=== PATIENT | female | born 1995 | race Caucasian/White ===

== ENCOUNTER 2016-06-12 00:49 | Outpatient (CLI) | payer OTHER, MEDICAID ==
[~2016-06-12] VITALS: Ht 157.5 cm; Wt 90.8 kg
[2016-06-12 01:12] VITALS: BP 132/91; PULSE 93; Ht 157.5 cm; Wt 90.8 kg
[2016-06-12] MEDS ORDERED: PREN1TAB62 PO (01:14)
[2016-06-12 01:42] LABS: ADD UMIC YES; URINE BILIRUBIN (Dip) NEGATIVE (NEGATIVE); URINE BLOOD (Dip) TRACE (NEGATIVE); URINE COLOR LT. YELLOW (YELLOW); URINE GLUCOSE (Dip) NEGATIVE (NEGATIVE); URINE KETONES (Dip) NEGATIVE (NEGATIVE); URINE LEUKOCYTE ESTERASE (Dip) TRACE (NEGATIVE); URINE NITRITE (Dip) NEGATIVE (NEGATIVE); URINE TOTAL PROTEIN (Dip) NEGATIVE (NEGATIVE); URINE UROBILINOGEN (Dip) 0.2 E.U./dL (0.1-1.0)
[2016-06-12 01:51] LABS: SQUAMOUS EPITHELIAL CELL,UR FEW; URINE RBCS NONE SEEN /HPF (0)
--- NOTE | 2016-06-12 03:09 | QN ---
Documentation Comment Laborist Dr Kumar's pt 21 y.o. G1 with an IUP at 28w 1d and c/o right lower abdominal pain and pressure since this AM. Pain is 3/10. Not aware of any contractions, vaginal bleeding or leaking. No intercourse in last 3 days. Pt also reports left groin pain for a month or more.No nausea, vomiting, dysuria or frequency. PMHx: none. PSHx: none. NKDA. BP 132/91. T= 98.2. NST: baseline 130 bpm with accels to 170 bpm. No decels. No UC's. U/A all negative except for trace blood. A: IUP at 28w 1d. Right lower quadrant pressure x 1 day. P: CBC. Cervical length. If all wnl may d/c home. RENITA MANNING MD Jun 12, 2016 03:09
[2016-06-12 03:15] LABS: BASOPHILS % 0.3 % (0.0-2.0); EOSINOPHILS # 0.2 10^3/ul (0.0-0.5); EOSINOPHILS % 1.6 % (0.0-7.0); HEMATOCRIT 32.7 % (37.0-47.0); HEMOGLOBIN 11.5 g/dl (12.0-16.0); LYMPHOCYTES # 2.9 10^3/ul (0.8-2.9); LYMPHOCYTES % 21.2 % (18.0-55.0); MEAN CORPUSCULAR HEMOGLOBIN 31.8 pg (29.0-33.0); MEAN CORPUSCULAR HGB CONC 35.3 g/dl (32.0-37.0); MEAN CORPUSCULAR VOLUME 90.1 fl (72.0-104.0); MEAN PLATELET VOLUME 7.6 fl (7.4-10.4); MONOCYTE # 1.4 10^3/ul (0.3-0.9); MONOCYTES % 10.1 % (0.0-13.0); NEUTROPHIL # 9.1 10^3/ul (1.6-7.5); NEUTROPHILS % 66.8 % (30.0-74.0); PLATELET COUNT 258 10^3/UL (140-440); RED BLOOD COUNT 3.62 10^6/ul (4.20-5.40); RED CELL DISTRIBUTION WIDTH 12.7 % (11.5-14.5); UNCORRECTED WBC 13.7 10^3/ul (4.8-10.8); WHITE BLOOD COUNT 13.7 10^3/ul (4.8-10.8)
[2016-06-12 03:30] LABS: CONDITION 1
--- NOTE | 2016-06-12 03:53 | RADRPT ---
PROCEDURE: Limited OB ultrasound CLINICAL INDICATION: 28.1 weeks with lower abdominal pain. Assess cervical length. labor. TECHNIQUE: Transabdominal scanning was performed. Images are submitted for review. COMPARISON: 02/23/2016 FINDINGS: There is a single live intrauterine gestation with a heart rate of 135 beats per minute. Presentati on is cephalic. The cervix is closed with a length of 3.4 cm. The placenta is fundal and grade 1. No additional imaging was performed. IMPRESSION: Cervix closed with a length of 3.4 cm. Single live intrauterine gestation. Physician Drew Date Time Electronically viewed and signed by Physician Drew on 06/12/2016 03:53 LE/
--- NOTE | 2016-06-12 04:30 | TRIAGE ---
OB Triage Datetime Report Generated by CPN: 06/12/2016 04:30 Datetime: 06/12/2016 04:00 Pain Assessment Pain Scale: 0 Pain Presence: None/Denies Pain Type: N/A Pain Assessment Comments: Denies need for Tylenol. Datetime: 06/12/2016 01:30 Labor Evaluation Frequency: NONE Monitor Mode: External Duration (sec)2399: NONE Pattern: Normal: <= 5 Contractions in 10 Minutes Heart Rate FHR Baseline Rate: 135 Monitor Mode: External US FHR Baseline Changes: No Baseline Change Variability: Moderate 6-25 bpm Accelerations: 10X10 Comments: APPRORIATE FOR GA Datetime: 06/12/2016 01:19 Monitor Mode: Palpation Resting Tone [place]: Relaxed Contraction Comments: ABD SOFT WITH PALPATION, NON TENDER. PT. STATES 'I HAVE PAIN ON MY INNER LE FT THIGH AND MY LOWER RIGHT SIDE' Datetime: 06/12/2016 01:03 Stage of : OB Triage Assessment Type: Triage Maternal Assessment Level of Consciousness: Fully Conscious DTR's/Clonus: DTRs 2+; No Clonus Headache: Denies Blurred Vision: No Respiratory Effort: Unlabored; Regular Rhythm; Equal Expansion Breath Sounds, Left: Clear and Equal Breath Sounds, Right: Clear and Equal Nausea/Vomiting: Denies RUQ Epigastric Pain: Denies Lower Extremities Edema: None Degree: None Upper Extremities Edema: None Degree: None Facial Edema: None Temperature Route: Oral Fall Risk Assessment History of Falling: (0) No Secondary Diagnosis: (0) No Ambulatory Aid: (0) Bedrest/Nurse Assist IV Therapy: (0) No Gait: (0) Normal/Bedrest/Immobile Mental Status: (0) Oriented to Own Ability Fall Score: 0 Fall Risk Score Definition: No Risk: No action required Pain Assessment Pain Scale: 3 Pain Presence: Intermittent Pain Type: Pressure Pain Location: Abdomen Pain Assessment Comments: Pt states she has pressure in her lower abdomen and feels like she needs to pee but is unable to. Datetime: 06/12/2016 01:00 Time of Arrival: 06/12/2016 00:45 EGA: 28.1 Arrived By: Wheelchair Arrived From: Home Chief Complaint: Lower abdominal pressure Movement: Present Contractions: Denies/Absent Rupture of Membranes: Denies Vaginal Bleeding: None Vaginal Discharge: Denies Recent Sexual Intercouse: Denies Abdominal Trauma: Not Applicable Patient Complaints: Other Time Provider Notified: 06/12/2016 01:46 Provider Notified: Dr. Alexander Initial Plan: CEFM
== END 2016-06-12 04:25 | disposition home or self-care (01) ==
LOC: OBT 00:49 → L-D 00:50 → OBT 04:25
PROVIDERS: ATTEND Obstetrics & Gynecology
DX: O26.893 Other specified pregnancy related conditions, third trimester (principal); R10.31 Right lower quadrant pain; O60.03 Preterm labor without delivery, third trimester; Z3A.28 28 weeks gestation of pregnancy
CPT/HCPCS: 76817; 81001; 85025; G0463; 81003

== ENCOUNTER 2016-06-25 20:36 | Inpatient (IN) | payer OTHER, MEDICAID ==
[~2016-06-25] VITALS: Ht 157.5 cm; Wt 91.1 kg
[~2016-06-25 20:36] MED LIST: PREN1TAB62 PO
[2016-06-25 20:44] VITALS: Ht 157.5 cm; Wt 91.1 kg
[2016-06-25 21:02] VITALS: BP 138/100; PULSE 107; RESP 18
[2016-06-25] MEDS ORDERED: ACETAMINOPHEN 500 MG TAB PO STA (21:25)
[2016-06-25] MEDS ORDERED: ACETAMINOPHEN 1000MG/100ML IV 100 ML IVPB ONE (21:30)
[2016-06-25 21:45] LABS: ADD SCAN DIFF NO
[2016-06-25 21:47] LABS: BASOPHILS % 0.2 % (0.0-2.0); EOSINOPHILS # 0.1 10^3/ul (0.0-0.5); EOSINOPHILS % 1.2 % (0.0-7.0); HEMATOCRIT 33.8 % (37.0-47.0); HEMOGLOBIN 11.7 g/dl (12.0-16.0); LYMPHOCYTES # 2.4 10^3/ul (0.8-2.9); MEAN CORPUSCULAR HEMOGLOBIN 30.8 pg (29.0-33.0); MEAN CORPUSCULAR HGB CONC 34.6 g/dl (32.0-37.0); MEAN CORPUSCULAR VOLUME 88.9 fl (72.0-104.0); MEAN PLATELET VOLUME 9.5 fl (7.4-10.4); MONOCYTES % 9.3 % (0.0-13.0); NEUTROPHIL # 7.4 10^3/ul (1.6-7.5); PLATELET COUNT 251 10^3/UL (140-415); RED CELL DISTRIBUTION WIDTH 12.2 % (11.5-14.5)
[2016-06-25 21:50] LABS: ADD UMIC NO; URINE BILIRUBIN (Dip) NEGATIVE (NEGATIVE); URINE BLOOD (Dip) NEGATIVE (NEGATIVE); URINE COLOR LT. YELLOW (YELLOW); URINE GLUCOSE (Dip) NEGATIVE (NEGATIVE); URINE KETONES (Dip) NEGATIVE (NEGATIVE); URINE LEUKOCYTE ESTERASE (Dip) NEGATIVE (NEGATIVE); URINE NITRITE (Dip) NEGATIVE (NEGATIVE); URINE TOTAL PROTEIN (Dip) NEGATIVE (NEGATIVE); URINE UROBILINOGEN (Dip) 0.2 E.U./dL (0.1-1.0)
[2016-06-25 22:04] LABS: ALBUMIN 3.1 g/dl (3.3-4.9)
[2016-06-25 22:05] LABS: POTASSIUM 3.6 mmol/L (3.5-5.1)
[2016-06-25 22:07] LABS: ALBUMIN/GLOBULIN RATIO 1.1; CREATININE 0.64 mg/dl (0.44-1.00); TOTAL PROTEIN 5.9 g/dl (6.1-8.1)
--- NOTE | 2016-06-25 22:34 | RADRPT ---
PROCEDURE: US OB. CLINICAL INDICATION: Pain TECHNIQUE: Multiple sonographic images of the pelvis were obtained. Transabdominal imaging only w as performed. The images were reviewed on a PACS workstation. COMPARISON: No prior studies are available for comparison. FINDINGS: Single intrauterine gestation. Cephalic presentation. heart rate is 144 bpm. Measurements were made in order to determine age. The results are as follows: BPD = 7.24 cm HC = 26.87 cm AC = 26.12 cm FL = 6.07 cm Gestational age is 30 weeks 0 days and PALAK is 09/03/2016 by ultrasound criteria and LMP. EFW = 1579 g +/- 237 g (54 %). The placenta is anterior. There is no evidence for an abruption or placenta previa. IMPRESSION: 1. Single live intrauterine gestation of approximately 30 weeks 0 days by ultrasound criteria. RPTAT: HDWR .Nile Martini MD, MD Date Time Electronically viewed and signed by .Nile Martini MD, on 06/25/2016 22:33 .R/
--- NOTE | 2016-06-25 22:35 | RADRPT ---
PROCEDURE: OB ultrasound for biophysical profile CLINICAL INDICATION: Pain. Biophysical profile. . TECHNIQUE: Multiple sonographic images of the pelvis were obtained. Transabdominal view of the gr avid uterus are available for review. The images were reviewed on a PACS workstation. COMPARISON: None FINDINGS: breathing movement = 2/2 tone = 2/2 motion = 2/2 GREG = 2/2 Single intrauterine gestation is identified in cephalic position. heart rate is 134 bpm. Plac enta is anterior without evidence for abruption or previa. GREG measures 6.1 cm, at the lower limit of normal. Maximum vertical pocket of fluid measures 2.4 cm IMPRESSION: 1. Single live intrauterine gestation. 2. Biophysical profile = 8. 3. There is borderline oligohydramnios - GREG measures 6.1 cm. RPTAT: HDWR .Nile Martini MD, Date Time Electronically viewed and signed by .Nile Martini MD, on 06/25/2016 22:34 .R/
[2016-06-25] MEDS ORDERED: LACTATED RINGER'S 1,000 ML IV SCH ×2 (22:48)
[2016-06-25] MEDS ORDERED: ACETAMINOPHEN 325 MG TAB PO PRN (23:00)
[2016-06-25] MEDS ORDERED: PROCHLORPERAZINE 10 MG INJ IV ONE (23:00)
[2016-06-25] MEDS ORDERED: MAGNESIUM SULFATE 4 GM/100 ML 100 ML IV ONE (23:00)
--- NOTE | 2016-06-25 23:27 | HP ---
Date/Time of Note Date/Time of Note DATE: 06/25/16 TIME: 23:18 OB - History Hx of Present Free Text/Dictation Pt is a 21yo G1 at 30+0 who presents with stuffy nose and GEORGE. Pt denies visual changes or RUQ pain, states movement has been wnl, denies LOF, VB or UCs. Per pt, course has been uncomplicated. She reports having had elevated BPs at every clinic visit, however on repeat the BP has always been normal so she has not had a workup for this. PROCEDURE: US OB. CLINICAL INDICATION: Pain TECHNIQUE: Multiple sonographic images of the pelvis were obtained. Transabdominal imaging only was performed. The images were reviewed on a PACS workstation. COMPARISON: No prior studies are available for comparison. FINDINGS: Single intrauterine gestation. Cephalic presentation. heart rate is 144 bpm. Measurements were made in order to determine age. The results are as follows: BPD = 7.24 cm HC = 26.87 cm AC = 26.12 cm FL = 6.07 cm Gestational age is 30 weeks 0 days and PALAK is 09/03/2016 by ultrasound criteria and LMP. EFW = 1579 g +/- 237 g (54 %). The placenta is anterior. There is no evidence for an abruption or placenta previa. IMPRESSION: 1. Single live intrauterine gestation of approximately 30 weeks 0 days by ultrasound criteria. PROCEDURE: OB ultrasound for biophysical profile CLINICAL INDICATION: Pain. Biophysical profile. . TECHNIQUE: Multiple sonographic images of the pelvis were obtained. Transabdominal view of the gravid uterus are available for review. The images were reviewed on a PACS workstation. COMPARISON: None FINDINGS: breathing movement = 2/2 tone = 2/2 motion = 2/2 GREG = 2/2 Single intrauterine gestation is identified in cephalic position. heart rate is 134 bpm. Placenta is anterior without evidence for abruption or previa. GREG measures 6.1 cm, at the lower limit of normal. Maximum vertical pocket of fluid measures 2.4 cm IMPRESSION: 1. Single live intrauterine gestation. 2. Biophysical profile = 8/8. 3. There is borderline oligohydramnios - GREG measures 6.1 cm. Estimated Due Date: September 03, 2016 : 1 Past Family/Social History * chart not available OB Admission Exam Vital Signs Vital Signs Vital Signs Date Time Temp Pulse Resp B/P Pulse Ox O2 Delivery O2 Flow Rate FiO2 06/25/16 21:02 98.1 107 18 138/100 99 Room Air BPs in triage 142-154/97-101, single severe range BP at 162/103 when discussing recommendation for admission Physical Exam HEENT: WNL Heart: Rhythm Normal Lungs: Clear Abdomen: WNL Extremities: Edema (trace bilateral LE edema) Reflexes: Normal Heart Rate: 130's Accelerations: Accelerations Present Decelerations: No Decelerations Varibility: Moderate Contractions on Admission: None Last 72 hours Lab Results CBC & BMP 06/25/16 21:36 Liver Function Test 06/25/16 21:36 Alanine Aminotransferase (ALT/SGPT) 18 Albumin 3.1 L Alkaline Phosphatase 83 Aspartate Amino Transf (AST/SGOT) 18 Direct Bilirubin 0.00 Total Protein 5.9 L OB Assessment/Plan Other Assessment: Elevated Blood Pressures- cHTN vs gHTN Status Low normal GREG Other plan: At this time, unclear whether pt has chronic HTN vs gestational HTN, no e/o PreE Admit to Antepartum service for BP monitoring and 24hr urine collection Magnesium Sulfate started for elevated BPs and headache PreE labs wnl at this time, will repeat in the AM or sooner for worsening BPs or sxs FWB reassuring- CEFM and toco Consider repeat GREG tomorrow Possible Perinatology and NICU consult in the AM, will defer to primary OB PO Tylenol and IV Compazine for GEORGE Will defer corticosteroids at this time given largely mild range BPs without e/o PreE. However discussed with pt that should clinical picture change , would have a low threshold to start steroids Plan d/w pt. Questions answered to her satisfaction JACKELINE JOHNSON MD Jun 25, 2016 23:27
[2016-06-25] MEDS: LACTATED RINGER'S 1,000 ML IV SCH (23:29)
[2016-06-26] MEDS: MAGNESIUM SULFATE 20 GM/500 ML 500 ML IV SCH ×2 (00:08→09:00)
[2016-06-26] MEDS: LABETALOL 100 MG TAB PO SCH ×3 (01:19→20:53)
[2016-06-26] MEDS: LACTATED RINGER'S 1,000 ML IV SCH ×4 (01:59→23:56)
[2016-06-26 07:01] LABS: ADD SCAN DIFF NO
[2016-06-26 07:10] LABS: BASOPHILS % 0.3 % (0.0-2.0); EOSINOPHILS # 0.1 10^3/ul (0.0-0.5); EOSINOPHILS % 1.2 % (0.0-7.0); HEMATOCRIT 32.6 % (37.0-47.0); HEMOGLOBIN 11.2 g/dl (12.0-16.0); LYMPHOCYTES # 2.7 10^3/ul (0.8-2.9); LYMPHOCYTES % 24.5 % (18.0-55.0); MEAN CORPUSCULAR HEMOGLOBIN 30.9 pg (29.0-33.0); MEAN CORPUSCULAR HGB CONC 34.4 g/dl (32.0-37.0); MEAN CORPUSCULAR VOLUME 89.8 fl (72.0-104.0); MEAN PLATELET VOLUME 9.9 fl (7.4-10.4); MONOCYTE # 1.1 10^3/ul (0.3-0.9); MONOCYTES % 10.1 % (0.0-13.0); NEUTROPHILS % 63.4 % (30.0-74.0); PLATELET COUNT 220 10^3/UL (140-415); RED BLOOD COUNT 3.63 10^6/ul (4.20-5.40); RED CELL DISTRIBUTION WIDTH 12.3 % (11.5-14.5)
[2016-06-26 07:28] LABS: ALBUMIN 2.8 g/dl (3.3-4.9)
[2016-06-26 07:29] LABS: POTASSIUM 3.7 mmol/L (3.5-5.1)
[2016-06-26 07:31] LABS: ALBUMIN/GLOBULIN RATIO 0.96; CREATININE 0.49 mg/dl (0.44-1.00); TOTAL PROTEIN 5.7 g/dl (6.1-8.1); URIC ACID 4.2 mg/dl (3.1-7.9)
[2016-06-26 07:32] LABS: CALCIUM 7.1 mg/dl (8.4-10.2); MAGNESIUM 4.6 mg/dl (1.7-2.5)
[2016-06-26] MEDS ORDERED: LABETALOL 100 MG TAB PO SCH ×2 (09:00→12:30)
[2016-06-26] MEDS ORDERED: LABETALOL 200 MG TAB PO SCH (09:00)
[2016-06-26] MEDS: FERROUS SULFATE (EC) 325 MG TAB PO SCH (09:08)
[2016-06-26] MEDS: MULTIVIT/MIN/FOLATE/IRON/PREN TAB PO SCH (09:08)
[2016-06-26] MEDS ORDERED: AL HYDROX/MG HYDROX/SIMETH 30 ML CUP PO PRN (10:30)
[2016-06-26] MEDS: BETAMET NA PHOS/AC(6 MG/ML) 5ML INJ IM SCH (11:14)
--- NOTE | 2016-06-26 17:22 | QN ---
Documentation Comment pt doing well no GEORGE no RUq pain vss exam wnl ap- elevateb bp on labatolo po and BMS course management per ANNIKA and CHANDA Blanco MD Jun 26, 2016 17:22
[2016-06-26 21:01] LABS: COLLECTION PERIOD 24 hrs
[2016-06-26 21:42] LABS: SCRET 0.49 mg/dl (0.44-1.00)
[2016-06-27] MEDS ORDERED: LACTATED RINGER'S 1,000 ML IV SCH (02:30)
[2016-06-27 06:50] LABS: URINE TOTAL PROTEIN < 5.0 mg/dl
[2016-06-27] MEDS: FERROUS SULFATE (EC) 325 MG TAB PO SCH ×2 (09:18→09:19)
[2016-06-27] MEDS: MULTIVIT/MIN/FOLATE/IRON/PREN TAB PO SCH (09:18)
[2016-06-27] MEDS: LABETALOL 100 MG TAB PO SCH (09:21)
[2016-06-27] MEDS: BETAMET NA PHOS/AC(6 MG/ML) 5ML INJ IM SCH (10:59)
[2016-06-27] MEDS: LACTATED RINGER'S 1,000 ML IV SCH (13:26)
--- NOTE | 2016-06-27 15:33 | DS ---
Date/Time of Note Date/Time of Note will D/C home per perinatologist and F/U with biweekly antepartum testing DATE: 06/27/16 TIME: 15:31 Obstetrical Discharge Record Final Diagnosis Final Diagnosis: not delivered Other Final Diagnosis ?PIH at 30 + weeks Complications Preg induced Hypertension Condition on Discharge Physical Assessment Last Vitals: see nurses notes Voiding: Yes Bowel Movement: Yes Breast: Soft, non-tender, Filling Fundus: Other (geavid ) Abdomen and Incision: soft BS + Episiotomy: NA Calf Tenderness: No Patient Condition: Good MICHELLE SANTA MD Jun 27, 2016 15:33
--- NOTE | 2016-06-27 15:35 | PD.PPDC ---
[employer] Discharge Instruction Provider Information Physician Information 21 y/o female admitted with elevated BP and was D/Mono home on labetalol Diagnosis Final Diagnosis: ? PIH at 30 weeks Condition Patient Condition: Good Diet Diet: Resume Regular Diet Activity/Restrictions Activity: Bedrest May Shower Restrictions: Nothing in the Vagina Follow-up Follow-up with Physician: 1, 2, Day/Days (in clinic) Return to clinic for OB Instructions: Blurried Vision Headache MICHELLE SANTA MD Jun 27, 2016 15:34
[2016-06-27] MEDS ORDERED: LABE100T3 PO (15:36)
== END 2016-06-27 16:40 | disposition home or self-care (01) | DRG 781 ==
LOC: OBT 20:36 → L-D 20:38 → OBG 22:30 → OBT 22:30
PROVIDERS: ADMIT Obstetrics & Gynecology; ATTEND Obstetrics & Gynecology
DX: O26.893 Other specified pregnancy related conditions, third trimester (principal); R51 Headache; O13.3 Gestational [pregnancy-induced] hypertension without significant proteinuria, third trimester; Z3A.30 30 weeks gestation of pregnancy
CPT/HCPCS: 36415; 76816; 76818; 80053; 81003; 82575; 83735; 84156; 84560; 85025; 87086; G0463; J0131; J0702; J0780; J3475; J7120

== ENCOUNTER 2016-07-05 14:00 | Outpatient (CLI) | payer OTHER, MEDICAID ==
[~2016-07-05] VITALS: Ht 157.5 cm; Wt 91.2 kg
[~2016-07-05 14:00] MED LIST changes: +LABE100T3 PO
--- NOTE | 2016-07-05 17:13 | RADRPT ---
PROCEDURE: OB ultrasound for biophysical profile CLINICAL INDICATION: Hypertension. Biophysical profile. . TECHNIQUE: Multiple sonographic images of the pelvis were obtained. Transabdominal view of the gr avid uterus are available for review. The images were reviewed on a PACS workstation. COMPARISON: Ultrasound, 06/25/2016 FINDINGS: breathing movement = 2/2 tone = 2/2 motion = 2/2 GREG = 2/2 Single intrauterine gestation is identified in cephalic position. heart rate is 137 bpm. Plac enta is anterior fundal without evidence for abruption or previa. GREG measures 7.3 cm, within elizabeth l limits. IMPRESSION: 1. Single live intrauterine gestation. 2. Biophysical profile = 8/8. 3. GREG = 7.3 cm. RPTAT: TT .Nile Martini MD, MD Date Time Electronically viewed and signed by .Nile Martini MD, on 07/05/2016 17:12 .R/
[2016-07-05 18:41] VITALS: Ht 157.5 cm; Wt 91.2 kg
[2016-07-05 18:42] VITALS: BP 119/69; PULSE 80; RESP 20
--- NOTE | 2016-07-05 19:11 | TRIAGE ---
OB Triage Datetime Report Generated by CPN: 07/05/2016 19:10 Datetime: 07/05/2016 18:24 Stage of : OB Triage Datetime: 07/05/2016 17:55 Labor Evaluation Frequency: 0 Monitor Mode: External Duration (sec)2399: 0 Quality: Strong Resting Tone [place]: Relaxed Contraction Comments: no uc's noted Heart Rate FHR Baseline Rate: 155 Monitor Mode: External US Variability: Moderate 6-25 bpm Accelerations: 15X15 Decelerations: None Category: Category I Datetime: 07/05/2016 17:52 Labor Evaluation Frequency: 0 Monitor Mode: External Duration (sec)2399: 0 Quality: Mild Contraction Comments: NO UC'S NOTED AT THIS TIME Heart Rate FHR Baseline Rate: 155 Monitor Mode: External US Variability: Moderate 6-25 bpm Accelerations: 15X15 Decelerations: None Category: Category I Datetime: 07/05/2016 16:58 Comments: NST REACTIVE FOR GESTATIONAL AGE Datetime: 07/05/2016 16:57 Labor Evaluation Frequency: 0 Monitor Mode: External Duration (sec)2399: 0 Quality: Mild Heart Rate FHR Baseline Rate: 135 Monitor Mode: External US Variability: Moderate 6-25 bpm Accelerations: 15X15 Decelerations: None Category: Category I Datetime: 07/05/2016 15:46 Time of Arrival: 07/05/2016 13:57 EGA: 31.3 Arrived By: Ambulatory Arrived From: Home Chief Complaint: NST FOR HBP Movement: Present Contractions: Denies/Absent Rupture of Membranes: Denies Vaginal Bleeding: None Vaginal Discharge: Denies Recent Sexual Intercouse: Denies Abdominal Trauma: Not Applicable Time Provider Notified: 07/05/2016 15:45 Provider Notified: DR. BUSTAMANTE/JAGDISH Initial Plan: NST, BPP, antonio 7.3 Datetime: 06/27/2016 15:50 Stage of : Antepartum Labor Evaluation Frequency: 0 Monitor Mode: External Pattern: Normal: <= 5 Contractions in 10 Minutes Resting Tone [place]: Relaxed Heart Rate FHR Baseline Rate: 130 Monitor Mode: External US FHR Baseline Changes: No Baseline Change Variability: Moderate 6-25 bpm Accelerations: 10X10 Decelerations: None Category: Category I Datetime: 06/27/2016 15:15 Stage of : Antepartum Labor Evaluation Frequency: 0 Monitor Mode: External Pattern: Normal: <= 5 Contractions in 10 Minutes Resting Tone [place]: Relaxed Heart Rate FHR Baseline Rate: 130 Monitor Mode: External US FHR Baseline Changes: No Baseline Change Variability: Moderate 6-25 bpm Accelerations: 10X10 Decelerations: None Category: Category I Datetime: 06/27/2016 14:00 Monitor Mode: External Duration (sec)2399: 0 Resting Tone [place]: Relaxed Heart Rate FHR Baseline Rate: 130 Monitor Mode: External US FHR Baseline Changes: No Baseline Change Variability: Moderate 6-25 bpm Accelerations: 10X10 Decelerations: None Category: Category I Datetime: 06/27/2016 13:00 Labor Evaluation Frequency: 0 Monitor Mode: External Pattern: Normal: <= 5 Contractions in 10 Minutes Resting Tone [place]: Relaxed Monitor Mode: PT IN SHOWER Datetime: 06/27/2016 12:15 Labor Evaluation Frequency: 0 Monitor Mode: External Pattern: Normal: <= 5 Contractions in 10 Minutes Resting Tone [place]: Relaxed Heart Rate FHR Baseline Rate: 130 Monitor Mode: External US FHR Baseline Changes: No Baseline Change Variability: Moderate 6-25 bpm Accelerations: 10X10 Decelerations: None Category: Category I Datetime: 06/27/2016 12:11 Stage of : Antepartum Temperature Route: Oral Pain Presence: None/Denies Pain Goal: 0 Datetime: 06/27/2016 11:13 Labor Evaluation Frequency: 0 Monitor Mode: External Pattern: Normal: <= 5 Contractions in 10 Minutes Resting Tone [place]: Relaxed Heart Rate FHR Baseline Rate: 130 Monitor Mode: External US FHR Baseline Changes: No Baseline Change Variability: Moderate 6-25 bpm Accelerations: 10X10 Decelerations: None Category: Category I Datetime: 06/27/2016 10:01 Labor Evaluation Frequency: 0 Monitor Mode: External Pattern: Normal: <= 5 Contractions in 10 Minutes Resting Tone [place]: Relaxed Heart Rate FHR Baseline Rate: 130 Monitor Mode: External US FHR Baseline Changes: No Baseline Change Variability: Moderate 6-25 bpm Accelerations: 10X10 Decelerations: None Category: Category I Datetime: 06/27/2016 09:00 Labor Evaluation Frequency: 0 Monitor Mode: External Pattern: Normal: <= 5 Contractions in 10 Minutes Resting Tone [place]: Relaxed Heart Rate FHR Baseline Rate: LOSS OF INFORMATION Monitor Mode: External US Comments: BABY ACTIVE,WILL MONITOR AFTER PT FINISHED EATING Datetime: 06/27/2016 08:45 Assessment Type: Ongoing Assessment Maternal Assessment Level of Consciousness: Fully Conscious DTR's/Clonus: DTRs 3+; No Clonus Headache: Denies Blurred Vision: No Respiratory Effort: Unlabored; Regular Rhythm; Equal Expansion Breath Sounds, Left: Clear and Equal Breath Sounds, Right: Clear and Equal Nausea/Vomiting: Denies RUQ Epigastric Pain: Denies Lower Extremities Edema: Bilateral Lower Extremities Degree: 2+ Upper Extremities Edema: Bilateral Upper Extremities Degree: 2+ Facial Edema: None Fall Risk Assessment History of Falling: (0) No Secondary Diagnosis: (0) No Ambulatory Aid: (0) Bedrest/Nurse Assist IV Therapy: (20) Yes Gait: (0) Normal/Bedrest/Immobile Mental Status: (0) Oriented to Own Ability Fall Score: 20 Fall Risk Score Definition: No Risk: No action required Datetime: 06/27/2016 08:38 Stage of : Antepartum Temperature Route: Oral Pain Presence: None/Denies Pain Goal: 0 Datetime: 06/27/2016 08:19 Stage of : Antepartum Datetime: 06/27/2016 08:00 Labor Evaluation Frequency: 0 Monitor Mode: External Pattern: Normal: <= 5 Contractions in 10 Minutes Resting Tone [place]: Relaxed Contraction Comments: PT ASLEEP Heart Rate FHR Baseline Rate: 130 Monitor Mode: External US FHR Baseline Changes: No Baseline Change Variability: Moderate 6-25 bpm Accelerations: 10X10 Decelerations: None Category: Category I Datetime: 06/27/2016 07:00 Labor Evaluation Frequency: none Monitor Mode: External Resting Tone [place]: Relaxed Heart Rate FHR Baseline Rate: 130 Monitor Mode: External US FHR Baseline Changes: No Baseline Change Variability: Moderate 6-25 bpm Accelerations: 15X15 Decelerations: None Category: Category I Datetime: 06/27/2016 06:00 Labor Evaluation Frequency: none Monitor Mode: External Resting Tone [place]: Relaxed Heart Rate FHR Baseline Rate: 120 Monitor Mode: External US FHR Baseline Changes: No Baseline Change Variability: Moderate 6-25 bpm Accelerations: 15X15 Decelerations: Variable Category: Category II Datetime: 06/27/2016 05:00 Labor Evaluation Frequency: x1 Monitor Mode: External Duration (sec)2399: 60 Quality: Mild Resting Tone [place]: Relaxed Contraction Comments: pt without complaint of uc pain Heart Rate FHR Baseline Rate: 120 Monitor Mode: External US FHR Baseline Changes: No Baseline Change Variability: Moderate 6-25 bpm Accelerations: 15X15 Decelerations: Variable Category: Category II Datetime: 06/27/2016 04:00 Labor Evaluation Frequency: none Monitor Mode: External Resting Tone [place]: Relaxed Heart Rate FHR Baseline Rate: 130 Monitor Mode: External US FHR Baseline Changes: No Baseline Change Variability: Moderate 6-25 bpm Accelerations: 15X15 Decelerations: Variable Category: Category II Datetime: 06/27/2016 03:00 Labor Evaluation Frequency: x2 Monitor Mode: External Duration (sec)2399: 40 Quality: Mild Resting Tone [place]: Relaxed Contraction Comments: pt wlithout complaint of uc pain. Heart Rate FHR Baseline Rate: 130 Monitor Mode: External US FHR Baseline Changes: No Baseline Change Variability: Moderate 6-25 bpm Accelerations: 15X15 Decelerations: Variable Category: Category II Datetime: 06/27/2016 02:00 Labor Evaluation Frequency: none Monitor Mode: External Resting Tone [place]: Relaxed Heart Rate FHR Baseline Rate: 130 Monitor Mode: External US FHR Baseline Changes: No Baseline Change Variability: Moderate 6-25 bpm Accelerations: 15X15 Decelerations: Variable Category: Category II Pain Assessment Pain Scale: 0 Pain Presence: None/Denies Datetime: 06/27/2016 01:00 Labor Evaluation Frequency: x2 Monitor Mode: External Duration (sec)2399: 40-50 Quality: Mild Resting Tone [place]: Relaxed Contraction Comments: pt without complaint of uc pain. Heart Rate FHR Baseline Rate: 130 Monitor Mode: External US FHR Baseline Changes: No Baseline Change Variability: Moderate 6-25 bpm Accelerations: 15X15 Decelerations: Variable Category: Category II Datetime: 06/27/2016 00:00 Labor Evaluation Frequency: none Monitor Mode: External Resting Tone [place]: Relaxed Heart Rate FHR Baseline Rate: 130 Monitor Mode: External US FHR Baseline Changes: No Baseline Change Variability: Moderate 6-25 bpm Accelerations: 15X15 Decelerations: None Category: Category I Datetime: 06/26/2016 23:55 Stage of : Antepartum Temperature Route: Oral Datetime: 06/26/2016 23:00 Labor Evaluation Frequency: none Monitor Mode: External Resting Tone [place]: Relaxed Heart Rate FHR Baseline Rate: 130 Monitor Mode: External US FHR Baseline Changes: No Baseline Change Variability: Moderate 6-25 bpm Accelerations: 15X15 Decelerations: None Category: Category I Datetime: 06/26/2016 22:00 Labor Evaluation Frequency: x1 Monitor Mode: External Duration (sec)2399: 50 Quality: Mild Resting Tone [place]: Relaxed Contraction Comments: pt without complaint of uc pain Heart Rate FHR Baseline Rate: 130 Monitor Mode: External US FHR Baseline Changes: No Baseline Change Variability: Moderate 6-25 bpm Accelerations: 15X15 Decelerations: None Category: Category I Pain Assessment Pain Scale: 0 Pain Presence: None/Denies Datetime: 06/26/2016 21:00 Labor Evaluation Frequency: x3 Monitor Mode: External Duration (sec)2399: 40-90 Quality: Mild Resting Tone [place]: Relaxed Contraction Comments: pt without complaint of uc pain Heart Rate FHR Baseline Rate: 130 Monitor Mode: External US FHR Baseline Changes: No Baseline Change Variability: Moderate 6-25 bpm Accelerations: 15X15 Decelerations: None Category: Category I Pain Assessment Pain Scale: 0 Pain Presence: None/Denies Datetime: 06/26/2016 20:00 Labor Evaluation Frequency: x2 Monitor Mode: External Duration (sec)2399: 40 Quality: Mild Resting Tone [place]: Relaxed Contraction Comments: pt without complaint of uc pain Heart Rate FHR Baseline Rate: 135 Monitor Mode: External US FHR Baseline Changes: No Baseline Change Variability: Moderate 6-25 bpm Accelerations: 10X10 Decelerations: None Category: Category I Pain Assessment Pain Scale: 0 Pain Presence: None/Denies Datetime: 06/26/2016 19:40 Stage of : Antepartum Assessment Type: Ongoing Assessment Maternal Assessment Level of Consciousness: Fully Conscious DTR's/Clonus: DTRs 2+; No Clonus Headache: Denies Blurred Vision: No Respiratory Effort: Unlabored; Regular Rhythm; Equal Expansion Breath Sounds, Left: Clear and Equal Breath Sounds, Right: Clear and Equal Nausea/Vomiting: Denies RUQ Epigastric Pain: Denies Lower Extremities Edema: Bilateral Lower Extremities Degree: 1+ Upper Extremities Edema: Bilateral Upper Extremities Degree: 1+ Facial Edema: None Temperature Route: Oral Fall Risk Assessment History of Falling: (0) No Secondary Diagnosis: (0) No Ambulatory Aid: (0) Bedrest/Nurse Assist IV Therapy: (20) Yes Gait: (0) Normal/Bedrest/Immobile Mental Status: (0) Oriented to Own Ability Fall Score: 20 Fall Risk Score Definition: No Risk: No action required Datetime: 06/26/2016 19:17 Labor Evaluation Frequency: 0 Monitor Mode: External Pattern: Normal: <= 5 Contractions in 10 Minutes Resting Tone [place]: Relaxed Heart Rate FHR Baseline Rate: 130 Monitor Mode: External US FHR Baseline Changes: No Baseline Change Variability: Moderate 6-25 bpm Accelerations: 10X10 Decelerations: None Category: Category I Datetime: 06/26/2016 18:44 Stage of : Antepartum Datetime: 06/26/2016 18:30 Labor Evaluation Frequency: 0 Monitor Mode: External Pattern: Normal: <= 5 Contractions in 10 Minutes Resting Tone [place]: Relaxed Heart Rate FHR Baseline Rate: 130 Monitor Mode: External US FHR Baseline Changes: No Baseline Change Variability: Moderate 6-25 bpm Accelerations: 10X10 Decelerations: None Category: Category I Datetime: 06/26/2016 17:30 Stage of : Antepartum Labor Evaluation Frequency: 0 Monitor Mode: External Pattern: Normal: <= 5 Contractions in 10 Minutes Resting Tone [place]: Relaxed Heart Rate FHR Baseline Rate: 130 Monitor Mode: External US FHR Baseline Changes: No Baseline Change Variability: Moderate 6-25 bpm Accelerations: 10X10 Decelerations: None Category: Category I Datetime: 06/26/2016 16:48 Stage of : Antepartum Temperature Route: Oral Labor Evaluation Frequency: 0 Monitor Mode: External Pattern: Normal: <= 5 Contractions in 10 Minutes Resting Tone [place]: Relaxed Heart Rate FHR Baseline Rate: 130 Monitor Mode: External US FHR Baseline Changes: No Baseline Change Variability: Moderate 6-25 bpm Accelerations: 10X10 Decelerations: None Category: Category I Pain Presence: None/Denies Pain Goal: 0 Datetime: 06/26/2016 15:00 Labor Evaluation Frequency: 0 Monitor Mode: External Pattern: Normal: <= 5 Contractions in 10 Minutes Resting Tone [place]: Relaxed Heart Rate FHR Baseline Rate: 130 Monitor Mode: External US FHR Baseline Changes: No Baseline Change Variability: Moderate 6-25 bpm Accelerations: 10X10 Decelerations: None Category: Category I Datetime: 06/26/2016 14:16 Labor Evaluation Frequency: 0 Monitor Mode: External Pattern: Normal: <= 5 Contractions in 10 Minutes Resting Tone [place]: Relaxed Heart Rate FHR Baseline Rate: 120 Monitor Mode: External US FHR Baseline Changes: No Baseline Change Variability: Moderate 6-25 bpm Accelerations: 10X10 Decelerations: None Category: Category I Datetime: 06/26/2016 13:37 Labor Evaluation Frequency: 0 Monitor Mode: External Pattern: Normal: <= 5 Contractions in 10 Minutes Resting Tone [place]: Relaxed Heart Rate FHR Baseline Rate: 120 Monitor Mode: External US FHR Baseline Changes: No Baseline Change Variability: Moderate 6-25 bpm Accelerations: 15X15 Decelerations: None Category: Category I Datetime: 06/26/2016 13:21 Labor Evaluation Frequency: 0 Monitor Mode: External Pattern: Normal: <= 5 Contractions in 10 Minutes Resting Tone [place]: Relaxed Heart Rate FHR Baseline Rate: 130 Monitor Mode: External US FHR Baseline Changes: No Baseline Change Variability: Moderate 6-25 bpm Accelerations: 10X10 Decelerations: None Category: Category I Datetime: 06/26/2016 12:28 Stage of : Antepartum Temperature Route: Oral Pain Presence: None/Denies Pain Goal: 0 Datetime: 06/26/2016 12:27 Labor Evaluation Frequency: 0 Monitor Mode: External Pattern: Normal: <= 5 Contractions in 10 Minutes Resting Tone [place]: Relaxed Heart Rate FHR Baseline Rate: 125 Monitor Mode: External US FHR Baseline Changes: No Baseline Change Variability: Moderate 6-25 bpm Accelerations: 10X10 Decelerations: None Category: Category I Datetime: 06/26/2016 11:27 Labor Evaluation Frequency: 0 Monitor Mode: External Pattern: Normal: <= 5 Contractions in 10 Minutes Heart Rate FHR Baseline Rate: 120 Monitor Mode: External US FHR Baseline Changes: No Baseline Change Variability: Moderate 6-25 bpm Accelerations: 10X10 Decelerations: None Category: Category I Datetime: 06/26/2016 10:00 Labor Evaluation Frequency: 0 Monitor Mode: External Pattern: Normal: <= 5 Contractions in 10 Minutes Resting Tone [place]: Relaxed Heart Rate FHR Baseline Rate: 120 Monitor Mode: External US FHR Baseline Changes: No Baseline Change Variability: Moderate 6-25 bpm Accelerations: 10X10 Decelerations: None Category: Category I Datetime: 06/26/2016 09:50 Stage of : Antepartum Datetime: 06/26/2016 09:42 Stage of : Antepartum Datetime: 06/26/2016 09:26 Monitor Mode: External Duration (sec)2399: 0 Resting Tone [place]: Relaxed Heart Rate FHR Baseline Rate: 120 Monitor Mode: External US FHR Baseline Changes: No Baseline Change Variability: Moderate 6-25 bpm Accelerations: 15X15 Decelerations: None Category: Category I Datetime: 06/26/2016 07:55 Labor Evaluation Frequency: 0 Monitor Mode: External Pattern: Normal: <= 5 Contractions in 10 Minutes Resting Tone [place]: Relaxed Heart Rate FHR Baseline Rate: 120 Monitor Mode: External US FHR Baseline Changes: No Baseline Change Variability: Moderate 6-25 bpm Accelerations: 15X15 Decelerations: None Category: Category I Datetime: 06/26/2016 07:46 Assessment Type: Ongoing Assessment Maternal Assessment Level of Consciousness: Fully Conscious DTR's/Clonus: DTRs 2+; No Clonus Headache: Denies Blurred Vision: No Respiratory Effort: Unlabored; Regular Rhythm; Equal Expansion Breath Sounds, Left: Clear and Equal Breath Sounds, Right: Clear and Equal Nausea/Vomiting: Denies RUQ Epigastric Pain: Denies Lower Extremities Edema: Bilateral Lower Extremities Degree: 2+ Upper Extremities Edema: Bilateral Upper Extremities Degree: 2+ Facial Edema: None Fall Risk Assessment History of Falling: (0) No Secondary Diagnosis: (0) No Ambulatory Aid: (0) Bedrest/Nurse Assist IV Therapy: (20) Yes Gait: (0) Normal/Bedrest/Immobile Mental Status: (0) Oriented to Own Ability Fall Score: 20 Fall Risk Score Definition: No Risk: No action required Datetime: 06/26/2016 07:37 Stage of : Antepartum Temperature Route: Oral Pain Presence: None/Denies Pain Goal: 0 Datetime: 06/26/2016 07:29 Stage of : Antepartum Datetime: 06/26/2016 06:20 Labor Evaluation Frequency: 0 Monitor Mode: External Duration (sec)2399: denies Resting Tone [place]: Relaxed Heart Rate FHR Baseline Rate: 125 Monitor Mode: External US Variability: Moderate 6-25 bpm Accelerations: 10X10 Decelerations: None Category: Category II Pain Presence: None/Denies Pain Type: N/A Datetime: 06/26/2016 05:20 Labor Evaluation Frequency: 0 Monitor Mode: External Duration (sec)2399: denies Resting Tone [place]: Relaxed Heart Rate FHR Baseline Rate: 125 Monitor Mode: External US Variability: Moderate 6-25 bpm Accelerations: 15X15 Decelerations: None Category: Category I Pain Presence: None/Denies Pain Type: N/A Datetime: 06/26/2016 04:20 Labor Evaluation Frequency: 0 Heart Rate FHR Baseline Rate: 125 Datetime: 06/26/2016 03:20 Labor Evaluation Frequency: 0 Monitor Mode: External Duration (sec)2399: denies Resting Tone [place]: Relaxed Heart Rate FHR Baseline Rate: 125 Pain Presence: None/Denies Pain Assessment Comments: denies headache. Datetime: 06/26/2016 02:20 Labor Evaluation Frequency: 0 Monitor Mode: External Resting Tone [place]: Relaxed Heart Rate FHR Baseline Rate: 135 Monitor Mode: External US Variability: Moderate 6-25 bpm Accelerations: 15X15 Decelerations: None Category: Category I Comments: loc due to maternal movements. Pain Presence: None/Denies Pain Type: N/A Datetime: 06/26/2016 01:20 Labor Evaluation Frequency: x2 Monitor Mode: External Duration (sec)2399: 40 Quality: Mild Resting Tone [place]: Relaxed Heart Rate FHR Baseline Rate: 145 Monitor Mode: External US Variability: Moderate 6-25 bpm Accelerations: 15X15 Decelerations: None Category: Category I Pain Presence: None/Denies Pain Type: N/A Datetime: 06/26/2016 00:20 Labor Evaluation Frequency: 0 Monitor Mode: External Resting Tone [place]: Relaxed Heart Rate FHR Baseline Rate: 135 Monitor Mode: External US Variability: Moderate 6-25 bpm Accelerations: 15X15 Decelerations: None Category: Category I Pain Presence: None/Denies Pain Type: N/A Datetime: 06/25/2016 23:43 Stage of : Antepartum Assessment Type: Ongoing Assessment Maternal Assessment Level of Consciousness: Fully Conscious DTR's/Clonus: DTRs 2+; No Clonus Headache: Denies Blurred Vision: No Respiratory Effort: Unlabored; Regular Rhythm; Equal Expansion Breath Sounds, Left: Clear and Equal Breath Sounds, Right: Clear and Equal Nausea/Vomiting: Denies RUQ Epigastric Pain: Denies Lower Extremities Edema: Bilateral Lower Extremities Degree: None Upper Extremities Edema: None Degree: None Facial Edema: None Temperature Route: Oral Fall Risk Assessment History of Falling: (0) No Secondary Diagnosis: (0) No Ambulatory Aid: (0) Bedrest/Nurse Assist IV Therapy: (0) No Gait: (0) Normal/Bedrest/Immobile Mental Status: (0) Oriented to Own Ability Fall Score: 0 Fall Risk Score Definition: No Risk: No action required Pain Assessment Pain Scale: 6 Pain Presence: Intermittent Pain Type: Dull; Ache Pain Location: Head (Annotations: PT STATED SHE HAD A COLD X4 DAYS WITH STTUFY NOSE.) Pain Relief Measures: Pain Medication Given (Annotations: TYLENOL 1000 MG PO GIVEN.) Vaginal Exam Membrane Status: Intact Datetime: 06/25/2016 23:10 Stage of : OB Triage Labor Evaluation Frequency: 0 Monitor Mode: External Resting Tone [place]: Relaxed Heart Rate FHR Baseline Rate: 130 Monitor Mode: External US Variability: Moderate 6-25 bpm Accelerations: 15X15 Decelerations: None Category: Category I Pain Assessment Pain Scale: 8 Pain Presence: Constant Pain Type: Ache Pain Location: Head Pain Goal: 0 Pain Relief Measures: Comfort Measures Datetime: 06/25/2016 23:02 Vaginal Exam Membrane Status: Intact Datetime: 06/25/2016 21:30 Stage of : OB Triage Temperature Route: Oral Labor Evaluation Frequency: 0 Monitor Mode: External Resting Tone [place]: Relaxed Heart Rate FHR Baseline Rate: 135 Monitor Mode: External US Variability: Moderate 6-25 bpm Accelerations: 15X15 Decelerations: None Category: Category I Pain Assessment Pain Scale: 10 Pain Presence: Constant Pain Type: Ache Pain Location: Head Pain Goal: 0 Pain Relief Measures: Comfort Measures Pain Assessment Comments: med tylenol 100mg po given at 2134 Datetime: 06/25/2016 20:55 Assessment Type: Triage Maternal Assessment Level of Consciousness: Fully Conscious DTR's/Clonus: DTRs 2+; No Clonus Headache: Denies; Frontal Blurred Vision: No Respiratory Effort: Unlabored; Regular Rhythm; Equal Expansion Nausea/Vomiting: Denies RUQ Epigastric Pain: Denies Lower Extremities Edema: None (Annotations: obese pt.) Upper Extremities Edema: Bilateral Upper Extremities Degree: None Facial Edema: None Fall Risk Assessment History of Falling: (0) No Secondary Diagnosis: (0) No Ambulatory Aid: (0) Bedrest/Nurse Assist IV Therapy: (0) No Gait: (0) Normal/Bedrest/Immobile Mental Status: (0) Oriented to Own Ability Fall Score: 0 Fall Risk Score Definition: No Risk: No action required Comment: stuffy nose since 3-4 days Datetime: 06/25/2016 20:45 Time of Arrival: 06/25/2016 20:35 EGA: 30.0 Arrived By: Ambulatory Arrived From: Home Chief Complaint: HEADACHE AND STUFFY NOSE Movement: Present Contractions: Denies/Absent Rupture of Membranes: Denies Vaginal Bleeding: None Vaginal Discharge: Denies Recent Sexual Intercouse: Yes Abdominal Trauma: Not Applicable Patient Complaints: Headache Additional Patient Complaints: STATED HAD ELEVATED BP IN CLINIC ONCE, THEN THEY RETOOK AND IT WAS NORMAL, NO COUGH Time Provider Notified: 06/25/2016 21:16 Provider Notified: ELIZABETH Initial Plan: EFM, ASSESSMENT, CALL MD FOR ORDERS Datetime: 06/12/2016 04:11 Labor Evaluation Frequency: NONE Monitor Mode: External Resting Tone [place]: Relaxed Datetime: 06/12/2016 03:30 Labor Evaluation Frequency: NONE Monitor Mode: External Resting Tone [place]: Relaxed Heart Rate FHR Baseline Rate: 125 Monitor Mode: External US Variability: Moderate 6-25 bpm Accelerations: 15X15 Decelerations: None Category: Category I Datetime: 06/12/2016 02:30 Labor Evaluation Frequency: NONE Monitor Mode: External Resting Tone [place]: Relaxed Heart Rate FHR Baseline Rate: 135 Monitor Mode: External US Variability: Moderate 6-25 bpm Accelerations: Prolonged Decelerations: None Category: Category I Datetime: 06/12/2016 02:21 Pain Assessment Pain Scale: 3 Pain Presence: Intermittent Pain Type: Pressure Pain Location: Abdomen Datetime: 06/12/2016 01:03 Fall Score: 0 Fall Risk Score Definition: No Risk: No action required Datetime: 06/12/2016 01:00 EGA: 28.1
== END 2016-07-05 18:38 | disposition home or self-care (01) ==
LOC: OBT 14:00 → L-D 14:01 → OBT 18:38
PROVIDERS: ATTEND Obstetrics & Gynecology
DX: O26.893 Other specified pregnancy related conditions, third trimester (principal); R03.0 Elevated blood-pressure reading, without diagnosis of hypertension; Z3A.31 31 weeks gestation of pregnancy
CPT/HCPCS: 76818; G0463

== ENCOUNTER 2016-07-17 13:45 | Outpatient (CLI) | END 2016-07-17 17:55 | disposition home or self-care (01) | DX: O13.3 Gestational [pregnancy-induced] hypertension without significant proteinuria, third trimester (principal); Z3A.34 34 weeks gestation of pregnancy | CPT/HCPCS: 36415; 76818; 80053; 81001; 84560; 85025; 85610; 85730; G0463 ==

== ENCOUNTER 2016-07-18 08:46 | Outpatient (CLI) | END 2016-07-18 13:25 | disposition home or self-care (01) | DX: O14.93 Unspecified pre-eclampsia, third trimester (principal); Z3A.33 33 weeks gestation of pregnancy ==

== ENCOUNTER 2016-07-19 13:57 | Outpatient (CLI) | payer OTHER, MEDICAID ==
[~2016-07-19] VITALS: Ht 160 cm; Wt 91.6 kg
[~2016-07-19 13:57] MED LIST changes: +CALC600T5 PO
[2016-07-19 14:16] VITALS: Ht 160 cm; Wt 91.6 kg
[2016-07-19 15:44] LABS: URINE TOTAL PROTEIN 5.5 mg/dl
--- NOTE | 2016-07-19 15:54 | RADRPT ---
PROCEDURE: US OB biophysical profile. CLINICAL INDICATION: decreased movements, hypertension TECHNIQUE: Multiple sonographic images of the pelvis were obtained. The images were reviewed on a PACS workstation. COMPARISON: 07/18/2016 FINDINGS: There is a single viable intrauterine gestation. Cardiac activity is present with 140 beats per min [place]. There is a vertex presentation. The placenta is anterior fundal. There is no evidence of placental abruption. There is a normal amount of amniotic fluid with an GREG = 9.5 cm. Biophysical profile: movement 2/2 tone 2/2. breathing 2/2 GREG 2/2 Total 12/05 RPTAT: AA . IMPRESSION: Normal biophysical profile. . .Shadi Villalta MD, MD Date Time Electronically viewed and signed by .Shadi Villalta MD, MD on 07/19/2016 15:54 .S/
[2016-07-19 16:10] LABS: SCRET 0.57 mg/dl (0.44-1.00)
--- NOTE | 2016-07-19 16:26 | TRIAGE ---
OB Triage Datetime Report Generated by CPN: 07/19/2016 16:25 Datetime: 07/19/2016 16:01 Stage of : Labor Datetime: 07/19/2016 16:00 Stage of : OB Triage Assessment Type: Triage Level of Consciousness: Fully Conscious DTR's/Clonus: DTRs 2+; No Clonus Headache: Denies Blurred Vision: No Respiratory Effort: Unlabored; Regular Rhythm; Equal Expansion Breath Sounds, Left: Clear and Equal Breath Sounds, Right: Clear and Equal Nausea/Vomiting: Denies RUQ Epigastric Pain: Denies Lower Extremities Edema: None Degree: None Upper Extremities Edema: None Degree: None Facial Edema: None Temperature Route: Axillary History of Falling: (0) No Secondary Diagnosis: (0) No Ambulatory Aid: (0) Bedrest/Nurse Assist IV Therapy: (0) No Gait: (0) Normal/Bedrest/Immobile Mental Status: (0) Oriented to Own Ability Fall Score: 0 Fall Risk Score Definition: No Risk: No action required Datetime: 07/19/2016 15:22 Frequency: 0 Monitor Mode: External Duration (sec)2399: 0 Quality: Mild Resting Tone [place]: Relaxed FHR Baseline Rate: 145 Monitor Mode: External US Variability: Moderate 6-25 bpm Accelerations: 15X15 Decelerations: None Category: Category I Comments: NST REACTIVE FOR GESTATIONAL AGE Datetime: 07/19/2016 14:12 Time of Arrival: 07/19/2016 13:51 EGA: 33.3 Arrived By: Ambulatory Arrived From: Home Chief Complaint: Follow up for 24 hour urine collection Movement: Present Contractions: Denies/Absent Rupture of Membranes: Denies Vaginal Bleeding: Normal Show Vaginal Discharge: Denies Recent Sexual Intercouse: Denies Abdominal Trauma: Not Applicable Patient Complaints: None Time Provider Notified: 07/19/2016 16:00 Provider Notified: DR. JOHNSON Initial Plan: NST, Creatinine clearance, 24 hour urine collection, BPP Datetime: 07/19/2016 14:00 Assessment Type: Triage Level of Consciousness: Fully Conscious DTR's/Clonus: DTRs 2+; No Clonus Headache: Denies Blurred Vision: No Respiratory Effort: Unlabored; Regular Rhythm; Equal Expansion Breath Sounds, Left: Clear and Equal Breath Sounds, Right: Clear and Equal Nausea/Vomiting: Denies RUQ Epigastric Pain: Denies Lower Extremities Edema: None Degree: None Upper Extremities Edema: None Degree: None Facial Edema: None History of Falling: (0) No Secondary Diagnosis: (0) No Ambulatory Aid: (0) Bedrest/Nurse Assist IV Therapy: (0) No Gait: (0) Normal/Bedrest/Immobile Mental Status: (0) Oriented to Own Ability Fall Score: 0 Fall Risk Score Definition: No Risk: No action required Datetime: 07/19/2016 13:58 Stage of : OB Triage
--- NOTE | 2016-07-19 16:45 | HP ---
Date/Time of Note Date/Time of Note DATE: 07/19/16 TIME: 16:39 OB - History Hx of Present Free Text/Dictation OB Triage Pt is a 21yo G1 at 33+3 with hypertensive disorder of on Labetolol 200mg BID presenting for results of 24hr urine, a BP check, and NST/BPP/GREG. Pt denies c/o. Was seen yesterday for GEORGE which has now resolved. Denies visual changes, RUQ pain, vaginal bleeding, LOF or UCs. Reports normal FM. PROCEDURE: US OB biophysical profile. CLINICAL INDICATION: decreased movements, hypertension TECHNIQUE: Multiple sonographic images of the pelvis were obtained. The images were reviewed on a PACS workstation. COMPARISON: 07/18/2016 FINDINGS: There is a single viable intrauterine gestation. Cardiac activity is present with 140 beats per minute. There is a vertex presentation. The placenta is anterior fundal. There is no evidence of placental abruption. There is a normal amount of amniotic fluid with an GREG = 9.5 cm. Biophysical profile: movement 2/2 tone 2/2. breathing 2/2 GREG 2/2 Total 8/8 Estimated Due Date: September 03, 2016 : 1 Care: Good Care Obstetrical Complications: Other ( records not available up to 20wks GA , thus unsure if gHTN vs cHTN) OB Admission Exam Vital Signs Vital Signs 98.1 119/73 109-> 96 18 Physical Exam Heart Rate: 130's Accelerations: Accelerations Present Decelerations: No Decelerations Varibility: Moderate Contractions on Admission: None Last 72 hours Lab Results CBC & BMP 07/19/16 14:05 OB Assessment/Plan Other Assessment: gHTN vs cHTN without signs/sxs of PreE 2/2 normal 24hr urine collection protein result (44mg) FWB reassuring Other plan: Pt appropriate for d/c home with f/up this evening as scheduled in clinic with Dr. Kumar. Unclear regarding continued ANTC plan, however likely pt will need to return to triage 2x/week for continued antepartum testing. PreE, PTL, PPROM and FKC precautions reviewed. Questions answered to patient's satisfaction. JACKELINE JOHNSON MD Jul 19, 2016 16:45
== END 2016-07-19 16:15 | disposition home or self-care (01) ==
LOC: OBT 13:57 → L-D 13:58 → OBT 16:15
PROVIDERS: ATTEND Obstetrics & Gynecology
DX: O36.8130 Decreased fetal movements, third trimester, not applicable or unspecified (principal); O16.3 Unspecified maternal hypertension, third trimester; Z3A.33 33 weeks gestation of pregnancy
CPT/HCPCS: 36415; 76818; 82565; 82575; 84156; 84520; 96372; G0463

== ENCOUNTER 2016-07-26 13:18 | Outpatient (CLI) | payer OTHER, MEDICAID ==
--- NOTE | 2016-07-26 14:33 | RADRPT ---
PROCEDURE: US OB biophysical profile. CLINICAL INDICATION: decreased movements, hypertension TECHNIQUE: Multiple sonographic images of the pelvis were obtained. The images were reviewed on a PACS workstation. COMPARISON: 07/19/16 FINDINGS: There is a single viable intrauterine gestation. Cardiac activity is present with 144 beats per min [place]. There is a vertex presentation. The placenta is anterior fundal. There is no evidence of placental abruption. There is a normal amount of amniotic fluid with an GREG = 9.2 cm. Biophysical profile: movement 2/2 tone 2/2. breathing 2/2 GREG 2/2 Total 12/05 RPTAT: AA . IMPRESSION: Normal biophysical profile. . .Shadi Villalta MD, MD Date Time Electronically viewed and signed by .Shadi Villalta MD, MD on 07/26/2016 14:33 .S/
[2016-07-26 15:38] LABS: ADD SCAN DIFF NO
[2016-07-26 15:40] LABS: BASOPHILS % 0.2 % (0.0-2.0); EOSINOPHILS # 0.1 10^3/ul (0.0-0.5); EOSINOPHILS % 0.8 % (0.0-7.0); HEMOGLOBIN 12.1 g/dl (12.0-16.0); LYMPHOCYTES # 2.2 10^3/ul (0.8-2.9); LYMPHOCYTES % 21.2 % (18.0-55.0); MEAN CORPUSCULAR HEMOGLOBIN 31.5 pg (29.0-33.0); MEAN CORPUSCULAR HGB CONC 35.6 g/dl (32.0-37.0); MEAN CORPUSCULAR VOLUME 88.5 fl (72.0-104.0); MONOCYTE # 1.1 10^3/ul (0.3-0.9); MONOCYTES % 10.2 % (0.0-13.0); NEUTROPHIL # 6.9 10^3/ul (1.6-7.5); NEUTROPHILS % 67.2 % (30.0-74.0); PLATELET COUNT 224 10^3/UL (140-415); RED BLOOD COUNT 3.84 10^6/ul (4.20-5.40); RED CELL DISTRIBUTION WIDTH 12.3 % (11.5-14.5); WHITE BLOOD COUNT 10.3 10^3/ul (4.8-10.8)
[2016-07-26 16:00] LABS: POTASSIUM 3.9 mmol/L (3.5-5.1)
[2016-07-26 16:02] LABS: BILIRUBIN,INDIRECT 0.1 mg/dl (0-1.1); BILIRUBIN,TOTAL 0.1 mg/dl (0.2-1.3); CREATININE 0.56 mg/dl (0.44-1.00)
[2016-07-26 16:03] LABS: CALCIUM 9.2 mg/dl (8.4-10.2); URIC ACID 5.9 mg/dl (3.1-7.9)
[2016-07-26 16:05] LABS: ADD UMIC YES; URINE BILIRUBIN (Dip) NEGATIVE (NEGATIVE); URINE BLOOD (Dip) NEGATIVE (NEGATIVE); URINE COLOR YELLOW (YELLOW); URINE GLUCOSE (Dip) NEGATIVE (NEGATIVE); URINE KETONES (Dip) NEGATIVE (NEGATIVE); URINE LEUKOCYTE ESTERASE (Dip) TRACE (NEGATIVE); URINE NITRITE (Dip) NEGATIVE (NEGATIVE); URINE TOTAL PROTEIN (Dip) 1+ (NEGATIVE); URINE UROBILINOGEN (Dip) 1.0 E.U./dL (0.1-1.0)
[2016-07-26 16:09] LABS: INR 0.87; PROTIME 11.8 Sec (12.2-14.2); PT RATIO 0.9
[2016-07-26 16:10] LABS: PARTIAL THROMBOPLASTIN TIME 27.9 Sec (25.0-35.0)
--- NOTE | 2016-07-26 16:18 | QN ---
Documentation Comment 21 y/o female P0 at 34.3 weeks here for gestational HTN W/U all labs are NL BP is stable on PO Labetalol Will D/C home MICHELLE SANTA MD Jul 26, 2016 16:18
[2016-07-26 16:22] LABS: BACTERIA,URINE RARE; SQUAMOUS EPITHELIAL CELL,UR MODERATE; URINE RBCS 0-2 /HPF ([, 0])
== END 2016-07-26 16:42 | disposition home or self-care (01) ==
LOC: OBT 13:18 → L-D 13:18 → OBT 16:42
PROVIDERS: ATTEND Obstetrics & Gynecology
DX: O13.3 Gestational [pregnancy-induced] hypertension without significant proteinuria, third trimester (principal); Z3A.34 34 weeks gestation of pregnancy
CPT/HCPCS: 36415; 76818; 80053; 81001; 84560; 85025; 85610; 85730; G0463; 81003

== ENCOUNTER 2016-08-10 14:06 | Outpatient (CLI) | payer OTHER, MEDICAID ==
--- NOTE | 2016-08-10 14:52 | RADRPT ---
PROCEDURE: US OB biophysical profile. CLINICAL INDICATION: decreased movements, PIH TECHNIQUE: Multiple sonographic images of the pelvis were obtained. The images were reviewed on a PACS workstation. COMPARISON: 08/07/16 FINDINGS: There is a single viable intrauterine gestation. Cardiac activity is present with 132 beats per min [place]. There is a vertex presentation. The placenta is anterior fundal. There is no evidence of placental abruption. There is a decreased amount of amniotic fluid with an GREG = 7.0 cm. Biophysical profile: movement 2/2 tone 2/2. breathing 2/2 GREG 2/2 Total 12/05 RPTAT: AA . IMPRESSION: Normal biophysical profile. Decreased GREG . .Shadi Villalta MD, Date Time Electronically viewed and signed by .Shadi Villalta MD, MD on 08/10/2016 14:52 .S/
[2016-08-10 14:54] VITALS: BP 137/90
--- NOTE | 2016-08-10 16:45 | CONS ---
Date/Time of Note Date/Time of Note DATE: 08/10/16 TIME: 16:37 Consultation Date/Type/Reason Admit Date/Time August 14, 2006 OB triage consult Reason for Consultation This patient is a 21 years old 1 para 0 whose EDC is 09/03/2016 which makes her 36 weeks and 4 days today She came to triage area due to elevated blood pressure that she had in her last trimester On examination she is a well-developed well-nourished lady near term Her vital signs showed a blood pressure of 137/90 and then another one 130/85. Pulse rate 95 respiration 18 temperature 97.6 On physical exam her ear nose throat appears to be normal Neck is normal no neck vein distention no thyromegaly no lymph node enlargement anywhere in the body Her chest is clear Heart normal sinus rhythm no murmur . Abdomen is soft, she does have occasional contractions every 6-7 minutes . Lower extremity normal no edema knee-jerk reflex appears to be normal She was recently seen and examined in the clinic for this reason a pelvic examination was not performed Her heart rate tracing were normal with fairly good variability with acceleration no real decelerations. With hydration her contractions gradually diminished. She also had an ultrasound study; her biophysical profile was reported 8 over 8 her GREG was 7 cm . on a single viable intrauterine gestation in vertex presentation As I mentioned her contraction gradually disappeared she will be discharged to be seen in the clinic and she will be admitted in the hospital in 4 days for induction of labor Constitutional: No chills, No diaphoresis, No disoriented, No febrile, No improved, No no complaints, No other, No poor po, No requiring IVF, No requiring O2 Eyes: No discharge, No no complaints, No other, No pain, No redness, No visual change ENT: No bleeding, No congestion, No discharge, No dysphagia, No no complaints, No other, No pain, No sore throat Respiratory: No cough, No no complaints, No other, No pain, No pleuritic pain, No shortness of breath, No sputum, No wheezing Cardiovascular: other (Blood pressure on average is about 135/90), No chest pain, No edema, No lightheadedness, No no complaints, No orthopenea , No palpitations, No paroxysmal nocturnal dyspnea Gastrointestinal: No blood, No constipation, No decreased appetite, No diarrhea , No flatus, No nausea, No no complaints, No other, No pain, No passing stool, No vomiting Genitourinary: No bleeding, No discharge, No dysuria, No flank pain, No hematuria, No no complaints, No other Musculoskeletal: No back pain, No bone/joint pain, No neck pain, No no complaints, No other, No restricted range of motion, No swelling Skin: No bruising, No erythema, No laceration, No no complaints, No other, No pruritis, No rash, No skin lesions Neurologic: other (Knee-jerk reflex is about 1+), No confusion, No dizziness, No focal-weakness, No headache, No no complaints , No seizure, No syncope Endocrine: No dry skin, No no complaints, No other, No polydypsia, No polyuria , No temp intolerance Psychological: No anxiety, No confusion, No depression, No nl mood/affect, No no complaints, No other, No suicidal Social History Smoking Status: Never smoker Exam/Review of Systems Vital Signs Vitals Vital Signs Date Time Temp Pulse Resp B/P Pulse Ox O2 Delivery O2 Flow Rate FiO2 08/10/16 14:54 97.8 137/90 Room Air STEPHANIE GUPTA MD Aug 10, 2016 16:44
== END 2016-08-10 16:16 | disposition home or self-care (01) ==
LOC: OBT 14:06 → L-D 14:07 → OBT 16:16
PROVIDERS: ATTEND Obstetrics & Gynecology
DX: O26.893 Other specified pregnancy related conditions, third trimester (principal); R03.0 Elevated blood-pressure reading, without diagnosis of hypertension; Z3A.36 36 weeks gestation of pregnancy
CPT/HCPCS: 76818; G0463

== ENCOUNTER 2016-08-14 09:00 | Inpatient (IN) | payer OTHER, MEDICAID ==
[~2016-08-14] VITALS: Ht 160 cm; Wt 93.7 kg
[2016-08-14 10:42] VITALS: Ht 160 cm; Wt 93.7 kg
[2016-08-14 10:43] VITALS: BP 135/98; PULSE 82; RESP 19
[2016-08-14 10:51] LABS: ADD SCAN DIFF NO
[2016-08-14] MEDS: LACTATED RINGER'S 1,000 ML IV SCH ×2 (10:53→19:53)
[2016-08-14 10:57] LABS: BASOPHILS % 0.3 % (0.0-2.0); EOSINOPHILS # 0.1 10^3/ul (0.0-0.5); EOSINOPHILS % 1.1 % (0.0-7.0); HEMATOCRIT 34.9 % (37.0-47.0); HEMOGLOBIN 12.2 g/dl (12.0-16.0); LYMPHOCYTES # 2.3 10^3/ul (0.8-2.9); LYMPHOCYTES % 23.2 % (18.0-55.0); MEAN CORPUSCULAR HEMOGLOBIN 30.9 pg (29.0-33.0); MEAN CORPUSCULAR VOLUME 88.4 fl (72.0-104.0); MEAN PLATELET VOLUME 10.7 fl (7.4-10.4); MONOCYTES % 9.7 % (0.0-13.0); NEUTROPHIL # 6.4 10^3/ul (1.6-7.5); NEUTROPHILS % 65.3 % (30.0-74.0); PLATELET COUNT 206 10^3/UL (140-415); RED BLOOD COUNT 3.95 10^6/ul (4.20-5.40); RED CELL DISTRIBUTION WIDTH 12.4 % (11.5-14.5); WHITE BLOOD COUNT 9.8 10^3/ul (4.8-10.8)
[2016-08-14] MEDS ORDERED: IBUPROFEN 600 MG TAB PO PRN (11:00)
[2016-08-14] MEDS ORDERED: LIDOCAINE 1% (MPF) 30 ML INJ INJ PRN (11:00)
[2016-08-14] MEDS ORDERED: CARBOPROST 250 MCG INJ IM PRN (11:00)
[2016-08-14] MEDS ORDERED: OXYTOCIN 30 UNITS/LR 500 ML IV SCH ×2 (11:00)
[2016-08-14] MEDS ORDERED: MISOPROSTOL 200 MCG TAB PR PRN (11:00)
[2016-08-14] MEDS ORDERED: OXYTOCIN 30 UNITS/LR 500 ML IV PRN (11:00)
[2016-08-14] MEDS ORDERED: METHYLERGONOVINE 0.2 MG INJ IM PRN (11:00)
[2016-08-14] MEDS ORDERED: BUTORPHANOL 2 MG INJ IV PRN (11:00)
[2016-08-14 11:05] LABS: INR 0.84; PROTIME 11.5 Sec (12.2-14.2); PT RATIO 0.9
[2016-08-14 11:06] LABS: PARTIAL THROMBOPLASTIN TIME 28.3 Sec (25.0-35.0)
[2016-08-14 11:09] LABS: ALBUMIN 2.9 g/dl (3.3-4.9)
[2016-08-14 11:10] LABS: POTASSIUM 3.8 mmol/L (3.5-5.1)
[2016-08-14 11:12] LABS: ALBUMIN/GLOBULIN RATIO 0.9; BILIRUBIN,INDIRECT 0.2 mg/dl (0-1.1); BILIRUBIN,TOTAL 0.2 mg/dl (0.2-1.3); CREATININE 0.63 mg/dl (0.44-1.00); TOTAL PROTEIN 6.1 g/dl (6.1-8.1)
[2016-08-14 11:13] LABS: CALCIUM 8.8 mg/dl (8.4-10.2)
[2016-08-14] MEDS ORDERED: DINOPROSTONE 10 MG VAG SUPP VAG ONE (11:30)
[2016-08-14] MEDS ORDERED: AMPICILLIN 2 GM/NS (PMX) 100 ML ONE (12:07)
[2016-08-14] MEDS ORDERED: AMPICILLIN 2 GM/NS (PMX) 100 ML IVPB ONE (12:30)
[2016-08-14] MEDS ORDERED: LACTATED RINGER'S 1,000 ML IV PRN (13:00)
[2016-08-14 15:49] LABS: ADD UMIC YES; URINE BILIRUBIN (Dip) NEGATIVE (NEGATIVE); URINE BLOOD (Dip) NEGATIVE (NEGATIVE); URINE COLOR LT. YELLOW (YELLOW); URINE GLUCOSE (Dip) NEGATIVE (NEGATIVE); URINE KETONES (Dip) NEGATIVE (NEGATIVE); URINE LEUKOCYTE ESTERASE (Dip) NEGATIVE (NEGATIVE); URINE NITRITE (Dip) NEGATIVE (NEGATIVE); URINE TOTAL PROTEIN (Dip) 1+ (NEGATIVE); URINE UROBILINOGEN (Dip) 0.2 E.U./dL (0.1-1.0)
[2016-08-14] MEDS: AMPICILLIN 1 GM/NS (PMX) 50 ML IVPB SCH ×2 (16:02→19:53)
[2016-08-14 16:11] LABS: BACTERIA,URINE RARE; URINE RBCS 0-2 /HPF (0)
[2016-08-14 16:28] LABS: CANNABINOIDS Negative (NEGATIVE)
[2016-08-14 16:29] LABS: BARBITURATES Negative (NEGATIVE); BENZODIAZEPINES Negative (NEGATIVE); COCAINE Negative (NEGATIVE); OPIATES Negative (NEGATIVE)
--- NOTE | 2016-08-14 20:19 | HP ---
Date/Time of Note Date/Time of Note DATE: 08/14/16 TIME: 20:12 OB - History Hx of Present Free Text/Dictation admitted for induction of the labor at 327 weeks because of PIH Chief Complaint: denies headache blurred vision and or epigastric pain Last Menstrual Period: Nov 14, 2015 Estimated Due Date: September 03, 2016 : 1 Para: 0 Care: Limited Care Ultrasounds: Normal mid trimester US Obstetrical Complications: Pre-eclampsia Medical Complications: None Past Family/Social History * Past Medical, Surgical, Family and Obstetric Histories reviewed from chart. Blood Type: O- Rubella: immune RPR/VDRL: Negative GBS Status: Unknown HBsAG: Negative OB Admission Exam Vital Signs Vital Signs Vital Signs Date Time Temp Pulse Resp B/P Pulse Ox O2 Delivery O2 Flow Rate FiO2 08/14/16 10:43 98.1 82 19 135/98 Physical Exam HEENT: WNL Heart: Rhythm Normal Lungs: Clear, Equal Abdomen: WNL Extremities: Normal Reflexes: Normal Cervical Dilatation: Fingertip Effacement: 0% Station: -3 Membranes: Intact Heart Rate: 150's Accelerations: Accelerations Present Decelerations: No Decelerations Contractions on Admission: None Last 72 hours Lab Results CBC & BMP 08/14/16 10:27 Liver Function Test 08/14/16 10:27 Alanine Aminotransferase (ALT/SGPT) 15 Albumin 2.9 L Alkaline Phosphatase 130 H Aspartate Amino Transf (AST/SGOT) 18 Direct Bilirubin 0.00 Total Protein 6.1 OB Assessment/Plan Reason for admission: induction of labor Other Assessment: 37 weeks gestation PIH Induction Method: per Misoprostol Protocol MICHELLE SANTA MD Aug 14, 2016 20:19
[2016-08-14] MEDS: LABETALOL 200 MG TAB PO SCH (21:07)
[2016-08-14] MEDS ORDERED: MAGNESIUM SULFATE 4 GM/100 ML 100 ML IVPB ONE (22:37)
[2016-08-14] MEDS: MAGNESIUM SULFATE 20 GM/500 ML 500 ML IV SCH (23:13)
[2016-08-15] MEDS: AMPICILLIN 1 GM/NS (PMX) 50 ML IVPB SCH ×7 (00:02→23:50)
[2016-08-15] MEDS ORDERED: LABETALOL HCL 20MG INJ IV ONE (00:45)
[2016-08-15] MEDS: LACTATED RINGER'S 1,000 ML IV SCH (08:24)
[2016-08-15] MEDS: LABETALOL 200 MG TAB PO SCH ×2 (09:04→21:01)
[2016-08-15] MEDS: MAGNESIUM SULFATE 20 GM/500 ML 500 ML IV SCH ×2 (09:06→19:08)
[2016-08-15] MEDS ORDERED: ACETAMINOPHEN 325 MG TAB PO ONE (10:30)
[2016-08-15] MEDS ORDERED: DINOPROSTONE 10 MG VAG SUPP VAG ONE (16:30)
--- NOTE | 2016-08-15 18:56 | PN ---
Date/Time of Note Date/Time of Note DATE: 08/15/16 TIME: 18:53 OB Subjective Subjective Subjective C/O headache was started on magnesium sulfate OB Objective Objective Objective BPs elevated patient does not seem to be in labor distress Cx: 50% 1cm posterior and soft OB Assessment/Plan Reason for admission: induction of labor Other Assessment: PIH 37 weeks gestation Other plan: continue with misoprostol MICHELLE SANTA MD Aug 15, 2016 18:56
[2016-08-15 20:00] LABS: ADD SCAN DIFF NO
[2016-08-15] MEDS: LABETALOL HCL 20MG INJ IV PRN (20:08)
[2016-08-15 20:12] LABS: ALBUMIN 2.8 g/dl (3.3-4.9)
[2016-08-15 20:13] LABS: POTASSIUM 3.9 mmol/L (3.5-5.1)
[2016-08-15 20:15] LABS: BILIRUBIN,INDIRECT 0.1 mg/dl (0-1.1); BILIRUBIN,TOTAL 0.1 mg/dl (0.2-1.3); CREATININE 0.57 mg/dl (0.44-1.00)
[2016-08-15 20:16] LABS: ALBUMIN/GLOBULIN RATIO 0.87; CALCIUM 6.6 mg/dl (8.4-10.2); URIC ACID 6.2 mg/dl (3.1-7.9)
[2016-08-15 20:24] LABS: INR 0.95; PROTIME 12.7 Sec (12.2-14.2)
[2016-08-15 20:25] LABS: BASOPHILS % 0.3 % (0.0-2.0); EOSINOPHILS # 0.1 10^3/ul (0.0-0.5); EOSINOPHILS % 0.6 % (0.0-7.0); HEMATOCRIT 32.5 % (37.0-47.0); HEMOGLOBIN 11.7 g/dl (12.0-16.0); LYMPHOCYTES # 1.8 10^3/ul (0.8-2.9); LYMPHOCYTES % 17.3 % (18.0-55.0); MEAN CORPUSCULAR HEMOGLOBIN 31.9 pg (29.0-33.0); MEAN CORPUSCULAR VOLUME 88.6 fl (72.0-104.0); MEAN PLATELET VOLUME 10.4 fl (7.4-10.4); MONOCYTES % 9.7 % (0.0-13.0); NEUTROPHIL # 7.5 10^3/ul (1.6-7.5); NEUTROPHILS % 71.6 % (30.0-74.0); PLATELET COUNT 199 10^3/UL (140-415); RED BLOOD COUNT 3.67 10^6/ul (4.20-5.40); RED CELL DISTRIBUTION WIDTH 12.5 % (11.5-14.5); WHITE BLOOD COUNT 10.5 10^3/ul (4.8-10.8)
[2016-08-15 21:58] LABS: ADD UMIC NO; URINE BILIRUBIN (Dip) NEGATIVE (NEGATIVE); URINE BLOOD (Dip) NEGATIVE (NEGATIVE); URINE COLOR LT. YELLOW (YELLOW); URINE GLUCOSE (Dip) NEGATIVE (NEGATIVE); URINE KETONES (Dip) NEGATIVE (NEGATIVE); URINE LEUKOCYTE ESTERASE (Dip) NEGATIVE (NEGATIVE); URINE NITRITE (Dip) NEGATIVE (NEGATIVE); URINE TOTAL PROTEIN (Dip) NEGATIVE (NEGATIVE); URINE UROBILINOGEN (Dip) 0.2 E.U./dL (0.1-1.0)
[2016-08-16] MEDS: LACTATED RINGER'S 1,000 ML IV SCH ×4 (01:27→20:33)
[2016-08-16] MEDS: LABETALOL HCL 20MG INJ IV PRN (04:08)
[2016-08-16] MEDS: AMPICILLIN 1 GM/NS (PMX) 50 ML IVPB SCH ×3 (04:08→12:03)
[2016-08-16] MEDS: MAGNESIUM SULFATE 20 GM/500 ML 500 ML IV SCH ×2 (05:10→18:36)
[2016-08-16] MEDS ORDERED: CARBOPROST 250 MCG INJ ONE (07:00)
[2016-08-16] MEDS: LABETALOL 200 MG TAB PO SCH ×2 (08:53→20:32)
[2016-08-16] MEDS ORDERED: MAGNESIUM SULFATE 20 GM/500 ML 500 ML IV SCH (10:10)
[2016-08-16] MEDS ORDERED: OXYTOCIN 30 UNITS/LR 500 ML IV SCH ×2 (10:17→14:30)
[2016-08-16] MEDS ORDERED: FENTAnyl 2MCG/ML-ROPIV 0.2% 100 ML ONE (11:35)
[2016-08-16] MEDS ORDERED: ZOLPIDEM 5 MG TAB PO PRN ×2 (13:00→15:30)
[2016-08-16] MEDS ORDERED: HYDROmorphONE 1 MG/ML SYG IV PRN ×2 (13:00)
[2016-08-16] MEDS ORDERED: ONDANSETRON 4 MG INJ IV PRN ×2 (13:00→15:30)
[2016-08-16] MEDS ORDERED: NALOXONE (0.4 MG/ML) INJ IV PRN ×2 (13:00→15:30)
[2016-08-16] MEDS ORDERED: FENTAnyl 2MCG/ML-ROPIV 0.2% 100 ML BAG EPI SCH (13:00)
[2016-08-16] MEDS ORDERED: DIPHENHYDRAMINE 50 MG INJ IV PRN ×2 (13:00→15:30)
[2016-08-16] MEDS ORDERED: CEFAZOLIN 2 GM/50 ML (PMX) 50 ML IV SCH (14:30)
[2016-08-16] MEDS ORDERED: MISOPROSTOL 200 MCG TAB PR PRN ×2 (14:30→18:00)
[2016-08-16] MEDS ORDERED: CARBOPROST 250 MCG INJ IM PRN ×2 (14:30→18:00)
[2016-08-16] MEDS ORDERED: OXYTOCIN 30 UNITS/LR 500 ML IV PRN ×2 (14:30→18:00)
[2016-08-16] MEDS ORDERED: METHYLERGONOVINE 0.2 MG INJ IM PRN ×2 (14:30→18:00)
[2016-08-16] MEDS ORDERED: LIDOCAINE 2% (SDV) 5 ML INJ ONE (14:45)
[2016-08-16] MEDS ORDERED: NA BICARBONATE 8.4% 50 ML SYG ONE (14:45)
[2016-08-16] MEDS ORDERED: morphine SULFATE/PF (10 MG/10 ML) INJ ONE (14:46)
[2016-08-16] MEDS ORDERED: FENTAnyl 50 MCG/ML VIAL ONE (14:46)
[2016-08-16] MEDS ORDERED: METOCLOPRAMIDE 10 MG INJ ONE (14:55)
[2016-08-16] MEDS ORDERED: OXYTOCIN 10 UNIT INJ ONE (15:03)
[2016-08-16] MEDS ORDERED: morphine 2 MG INJ IV PRN (15:30)
[2016-08-16] MEDS ORDERED: LABETALOL HCL 20MG INJ IV ONE (17:00)
[2016-08-16] MEDS: KETOROLAC 30 MG INJ IV PRN (17:10)
--- NOTE | 2016-08-16 17:31 | OPR ---
Operative Report Planned Procedure Procedure date Aug 16, 2016 Procedure(s) primary C/S Performed by: MICHELLE SANTA MD Assisting provider: RUBIO DUBON MD Anesthesiologist: Ankur Brewster M.D. Pre-procedure diagnosis 37 weeks gestation persistent and nonresolving category 2 - 3 FHTs Severe PIH Anesthesia Type: epidural Procedure Description Under satisfactory anaesthesia a Pfannenstiel incision was made two fingerbreadth above and parallel to the symphysis of pubis. Incision was extended laterally to the border of the Recti muscles on either sides. Incision was carried down with sharp and blunt dissection until fascia was reached. Anterior Recti muscle fascia was incised in mid portion and incision extended laterally to the border of skin incision. Fascia was mobilized from muscle superiorly and Recti muscles were from midline using sharp and blunt dissection. Peritoneum was visualized; Avoiding bowel and bladder it was incised . Incision was extended superiorly and inferiorly. Bladder blade was placed. Posterior peritoneum covering the lower segment of the uterus and lower segment of the uterus were incised. Incision was extended laterally to the border of Round Lig. on either sides and baby was delivered from OP. position . Amniotic fluid appeared clear. Cord blood was obtained and cord had 3 vessels . Placenta was delivered spontaneously and appeared intact and complete. Intrauterine cavity was rubbed with a laparotomy sponge. Uterine incision was closed in 2 layers using running stitches of No1 Monocryl. Hemostasis appeared secure. Ovaries and Fallopian tubes were within normal limits. Announcing needle, lap sponge and instrument count to be correct abdomen was closed in layers as follows: Peritoneum and Recti muscles with running stitches of 20 Vicryl. Fascia with running stitch of No 1 PDS. Subcutaneous tissue with running stitches of 20 Chromic and skin was closed using emily. Patient tolerated the procedure well and was transferred to [facility] in good condition. Post-Procedure Post-procedure diagnosis S/P C/S Findings: Live Baby Specimen removed: Yes Specimen description placenta Complications: None Pt Condition post procedure: stable Disposition: PACU Physician Certification I, the undersigned physician, hereby certify that I have discussed the procedure described in this consent form with this patient (or the patient's legal veterans employment representative), including: * The risk and benefits of the procedure; * Any adverse reactions that may reasonably be expected to occur; * Any alternative efficacious methods of treatment which may be medically viable ; * The potential problems that may occur during recuperation; * Potential for blood transfusion and associated risks/benefits; and * Any research or economic interest I may have regarding this treatment. I further certify that the patient/legally responsible person was encouraged to ask question and that all questions were answered. MICHELLE SANTA MD Aug 16, 2016 17:31
--- NOTE | 2016-08-16 17:32 | QN ---
Documentation Comment patient with persistent and nonresolving variable deceleration of FHTs After discussion with patient agreed to have C/S MICHELLE SANTA MD Aug 16, 2016 17:32
[2016-08-16] MEDS ORDERED: NA PHOSPHATE/BIPHOS 133 ML ENEMA PR PRN (18:00)
[2016-08-16] MEDS ORDERED: ACETAMINOPHEN/CODEINE #3 TAB PO PRN (18:00)
[2016-08-16] MEDS: CEFAZOLIN 2 GM/50 ML (PMX) 50 ML IV SCH (18:33)
[2016-08-16] MEDS: CLINDAMYCIN 300 MG CAP PO SCH (20:42)
[2016-08-16 21:30] VITALS: BP 135/96; PULSE 80; RESP 19
[2016-08-16 22:30] VITALS: BP 140/90; PULSE 80; RESP 20
[2016-08-16] MEDS: SENNA/DOCUSATE NA (8.6MG/50MG) TAB PO SCH (22:35)
[2016-08-16 23:30] VITALS: BP 140/92; PULSE 84; RESP 20
[2016-08-17] VITALS (15 sets, daily range): BP systolic 120–145; BP diastolic 78–96; PULSE 78–93; RESP 16–19
[2016-08-17] MEDS: CLINDAMYCIN 300 MG CAP PO SCH ×5 (00:38→23:55)
[2016-08-17] MEDS: KETOROLAC 30 MG INJ IV PRN ×2 (00:40→08:17)
[2016-08-17] MEDS: LACTATED RINGER'S 1,000 ML IV SCH ×3 (01:59→17:59)
[2016-08-17] MEDS: CEFAZOLIN 2 GM/50 ML (PMX) 50 ML IV SCH ×2 (02:44→11:35)
[2016-08-17] MEDS: MAGNESIUM SULFATE 20 GM/500 ML 500 ML IV SCH ×2 (04:29→13:59)
[2016-08-17] MEDS: morphine 2 MG INJ IV PRN ×2 (04:45→13:00)
[2016-08-17] MEDS: LANOLIN 7 GM TUBE TOP PRN ×2 (04:47→15:58)
[2016-08-17] MEDS: LABETALOL 200 MG TAB PO SCH ×2 (09:20→20:45)
[2016-08-17] MEDS: SENNA/DOCUSATE NA (8.6MG/50MG) TAB PO SCH ×2 (09:20→20:45)
[2016-08-17 09:41] LABS: ADD SCAN DIFF NO
[2016-08-17 09:52] LABS: BASOPHILS % 0.1 % (0.0-2.0); EOSINOPHILS # 0.1 10^3/ul (0.0-0.5); EOSINOPHILS % 0.5 % (0.0-7.0); HEMATOCRIT 32.3 % (37.0-47.0); HEMOGLOBIN 10.9 g/dl (12.0-16.0); LYMPHOCYTES # 1.9 10^3/ul (0.8-2.9); LYMPHOCYTES % 16.9 % (18.0-55.0); MEAN CORPUSCULAR HEMOGLOBIN 30.8 pg (29.0-33.0); MEAN CORPUSCULAR HGB CONC 33.7 g/dl (32.0-37.0); MEAN CORPUSCULAR VOLUME 91.2 fl (72.0-104.0); MEAN PLATELET VOLUME 10.1 fl (7.4-10.4); MONOCYTE # 0.9 10^3/ul (0.3-0.9); MONOCYTES % 8.3 % (0.0-13.0); NEUTROPHIL # 8.2 10^3/ul (1.6-7.5); NEUTROPHILS % 73.8 % (30.0-74.0); PLATELET COUNT 151 10^3/UL (140-415); RED BLOOD COUNT 3.54 10^6/ul (4.20-5.40); RED CELL DISTRIBUTION WIDTH 12.9 % (11.5-14.5); WHITE BLOOD COUNT 11.1 10^3/ul (4.8-10.8)
[2016-08-17] MEDS ORDERED: BISACODYL 10 MG SUPP PR ONE (10:00)
--- NOTE | 2016-08-17 13:58 | PN ---
Date/Time of Note Date/Time of Note DATE: 08/17/16 TIME: 13:57 Assessment/Plan VTE Prophylaxis VTE Prophylaxis Intervention: ambulation Lines/Catheters IV Catheter Type (from Nrsg): Peripheral IV Assessment/Plan Assessment/Plan POD # 1 S/P C/S will advance diet and ambulate Subjective 24 Hr Interval Summary NO BM Passing flatus Constitutional: BM, ambulates, flatus, improved, no complaints, urine output Pain Control: well controlled Exam/Review of Systems Vital Signs Vitals Vital Signs Date Time Temp Pulse Resp B/P Pulse Ox O2 Delivery O2 Flow Rate FiO2 08/17/16 10:13 98 21 08/17/16 09:00 85 17 129/91 Room Air 08/17/16 08:00 97.5 Intake and Output 08/16/16 08/16/16 08/17/16 15:00 23:00 07:00 Intake Total 2253 ml 3347 ml 2200 ml Output Total 150 ml 1300 ml 1500 ml Balance 2103 ml 2047 ml 700 ml Exam Free Text/Dictation Abdomen: soft BS + Incision: covered Constitutional: alert, oriented, well developed Psych: nl mood/affect, no complaints Head: atraumatic, normocephalic Eyes: EOMI, nl conjunctiva, nl lids, nl sclera ENMT: mucosa pink and moist, nl external ears & nose, nl lips & teeth, nl nasal mucosa & septum Neck: non-tender, supple Respiratory: clear to auscultation, normal air movement Cardiovascular: nl pulses, regular rate and rhythm Gastrointestinal: nl liver, spleen, non-tender, soft Musculoskeletal: nl extremities to inspection, nl gait and stance Extremities: normal pulses Neurological: SHANKER OUT II-XII intact, nl mental status, nl speech, nl strength Skin: nl turgor, rash or lesions Lymph: nl lymph nodes Results Result Diagram: 08/17/16 0855 08/15/161951 MICHELLE SANTA MD Aug 17, 2016 13:58
[2016-08-17] MEDS: IBUPROFEN 800 MG TAB PO SCH ×2 (14:00→21:41)
[2016-08-17] MEDS: OXYCODONE/ACETAMINOPHEN (5/325) TAB PO PRN ×2 (15:56→20:40)
[2016-08-18] VITALS (8 sets, daily range): BP systolic 127–151; BP diastolic 87–102; PULSE 72–91; RESP 16–20
[2016-08-18] MEDS: OXYCODONE/ACETAMINOPHEN (5/325) TAB PO PRN ×4 (04:16→23:40)
[2016-08-18] MEDS: CLINDAMYCIN 300 MG CAP PO SCH ×4 (05:30→23:40)
[2016-08-18] MEDS: IBUPROFEN 800 MG TAB PO SCH ×3 (05:31→21:49)
[2016-08-18] MEDS: SENNA/DOCUSATE NA (8.6MG/50MG) TAB PO SCH ×2 (08:33→21:49)
[2016-08-18] MEDS: LABETALOL 200 MG TAB PO SCH ×2 (08:33→21:49)
--- NOTE | 2016-08-18 20:32 | DS ---
Date/Time of Note Date/Time of Note home next day DATE: 08/18/16 TIME: 20:30 Obstetrical Discharge Record Final Diagnosis Final Diagnosis: Term delivered Other Final Diagnosis S/P C/S Section Section: Primary Primary Indication category 2-3 FHTs Complications Preg induced Hypertension Augmentation: Yes Induction: Yes Condition on Discharge Physical Assessment Last Vitals: see nurses notes Voiding: Yes Bowel Movement: Yes Breast: Soft, non-tender, Filling Fundus: Firm Abdomen and Incision: soft Bs+ Incision: healing well Episiotomy: NA Calf Tenderness: No Patient Condition: Good MICHELLE SANTA MD Aug 18, 2016 20:32
--- NOTE | 2016-08-18 20:35 | DS ---
Date/Time of Note Date/Time of Note DATE: 08/18/16 TIME: 20:32 Discharge Summary Admission/Discharge Info Admit Date/Time Aug 14, 2016 at 09:52 Discharge Date/Time 08/19/2016 Final Diagnosis S/P C/S Patient Condition: Good Procedures primary C/S Hx of Present Illness 21 y/o female had primary C/S Hospital Course uncomplicated Home Meds Active Scripts Labetalol Hcl* (Labetalol Hcl*) 100 Mg Tablet, 200 MG PO BID, #100 TAB 1 Refill Prov:MICHELLE SANTA MD 06/27/16 Reported Medications Calcium Carbonate (CALCIUM) 600 Mg Tablet, 600 MG PO DAILY, TAB 07/18/16 Vit-Iron Fumarate-FA ( Vitamin Tablet) 1 Each Tablet, 1 TAB PO DAILY, TAB 06/12/16 Follow-up Plan 2-3 days in clinic for staple removal MICHELLE SANTA MD Aug 18, 2016 20:35
--- NOTE | 2016-08-18 20:37 | PD.PPDC ---
MEDICAL SERVICE TECHNICIAN Discharge Instruction Provider Information Physician Information 21 y/o female had primary C/S Diagnosis Final Diagnosis: S/P C/S Condition Patient Condition: Good Diet Diet: Resume Regular Diet Activity/Restrictions Activity: August Shower Restrictions: No Exercising No Lifting Nothing in the Vagina Return to Work or School: Oct 23, 2016 Follow-up Follow-up with Physician: 2, 3, Day/Days (in clinic for staple removal ) Return to clinic for [facility]ANO [facility]INGER Instructions: Fever greater than 101 Chills OB Instructions: Breast Tenderness Depression Surgical Instructions: Incisional Drainage Incisional Redness MICHELLE SANTA MD Aug 18, 2016 20:37
[2016-08-18] MEDS ORDERED: IBUP800T25 PO (20:39)
[2016-08-18] MEDS ORDERED: Oxycodone/Acetamin (5/325) PO (20:39)
[2016-08-18] MEDS ORDERED: LABE100T3 PO (20:39)
[2016-08-19 04:00] VITALS: BP 148/97; PULSE 81; RESP 18
[2016-08-19] MEDS: CLINDAMYCIN 300 MG CAP PO SCH ×2 (05:15→11:37)
[2016-08-19] MEDS: OXYCODONE/ACETAMINOPHEN (5/325) TAB PO PRN ×2 (05:16→11:37)
[2016-08-19] MEDS: IBUPROFEN 800 MG TAB PO SCH ×2 (06:00→14:04)
[2016-08-19 08:30] VITALS: BP 140/92; PULSE 81; RESP 16
[2016-08-19] MEDS: SENNA/DOCUSATE NA (8.6MG/50MG) TAB PO SCH (08:33)
[2016-08-19] MEDS: LABETALOL 200 MG TAB PO SCH (08:34)
[2016-08-19] MEDS ORDERED: DIPHTH/TET/ACEL PERTUSS (ADULT) 0.5 ML VIAL IM* ONE (09:00)
[2016-08-19] MEDS ORDERED: MEASLES,MUMPS,RUBELLA VACCINE INJ SC* ONE (09:00)
[2016-08-19 12:00] VITALS: BP 136/84; PULSE 75; RESP 17
== END 2016-08-19 17:56 | disposition home or self-care (01) | DRG 766 ==
LOC: L-D 09:52 → PP1 08-16 21:28
PROVIDERS: ADMIT Obstetrics & Gynecology; ATTEND Obstetrics & Gynecology
PROC: 10D00Z1 Extraction of Products of Conception, Low, Open Approach (ICD-10-PCS; principal; 2016-08-16 15:00)
DX: O13.4 Gestational [pregnancy-induced] hypertension without significant proteinuria, complicating childbirth (principal); O76 Abnormality in fetal heart rate and rhythm complicating labor and delivery; Z3A.37 37 weeks gestation of pregnancy; Z37.0 Single live birth
CPT/HCPCS: 62319; 80053; 80307; 81001; 81003; 83735; 84560; 85025; 85610; 85730; 86592; 86850; 86900; 86901; 88307; 90715; 94760; 99464; J0290; J0690; J1885; J2210; J2270; J2274; J2590; J2765; J3010; J3475; J7120